=== PATIENT | male | born 1945 | race Caucasian/White ===

== ENCOUNTER → 2016-02-19 | Outpatient (CLI) | payer OTHER ==
[~2016-02-19] MED LIST: ALLOPURINOL300 MG PO; ANTIVERT25 MG PO; CIPROFLOXACIN500 MG PO; FEROSUL325 MG PO; FLAGYL250 MG PO; FOLIC ACID1 MG PO; GLYBURIDE5 MG PO; HYDROCODONE BIT1 T11 PO; INDOCIN50 MG PO; JANUMET 1000 MG1 TAB PO; LEVAQUIN500 M2 PO; LISINOPRIL40 MG PO; LOPRESSOR25 MG PO; PERCOCET 325 MG1 TA2 PO; V C FORTE PO; VICODIN 500 MG-1 TAB PO; VICODIN ES 7501 TAB PO; ZOCOR20 MG PO
== END | disposition home or self-care (01) ==
LOC: RAD 10:03
DX: M54.16 Radiculopathy, lumbar region (principal); M54.5 Low back pain

== ENCOUNTER → 2016-11-25 | Outpatient (CLI) | payer MEDICARE | END | disposition home or self-care (01) | LOC: RAD 10:15 | DX: N23 Unspecified renal colic (principal) ==

== ENCOUNTER 2018-05-12 09:27 | Emergency (ER) | payer MEDICARE ==
[~2018-05-12] VITALS: Ht 172.7 cm; Wt 93.9 kg
[~2018-05-12 09:27] MED LIST changes: +'TENORMIN50 MG PO; +ASPIRIN81 M1 PO; +FEOSOL325 MG PO; +FLOMAX0.4 MG PO; +GLUCOPHAGE1000 MG PO; +LEVOTHYROXINE100 MC1 PO; +LIPITOR10 MG PO; +LISINOPRIL2.5 MG PO; +LISINOPRIL5 MG PO; +MECLIZINE HCL25 M2 PO; +VITAMIN D-32000 UNI1 PO; +WARFARIN SOD5 MG PO; +XARELTO20 M1 PO
[2018-05-12 10:11] LABS: BASO # 0.1 10*3/uL (0.0-0.1); BASO % 0.8 % (0.0-1.0); EOS # 0.2 10*3/uL (0.0-0.4); EOS % 1.4 % (1.0-4.0); HEMATOCRIT 35.8 % (42.0-52.0); HEMOGLOBIN 10.7 g/dl (14.0-18.0); LYMPH # 2.8 10*3/uL (1.3-4.4); MEAN CELL VOLUME 63.5 fl (80.0-94.0); MEAN CORPUSCULAR HGB CONC 29.9 g/dl (33.0-37.0); MEAN PLATELET VOLUME 10.4 fl (9.6-12.3); MONO % 8.4 % (3.0-9.0); NEUT # 7.7 10*3/uL (2.3-7.9); NEUT % 65.1 % (47.0-73.0); PLATELET COUNT AUTOMATED 382 10*3/uL (130-400); RED BLOOD COUNT 5.64 10*6/uL (4.50-5.90); WHITE BLOOD COUNT 11.9 10*3/uL (4.8-10.8)
[2018-05-12 10:23] LABS: INTERNATIONAL NORM RATIO 1.2 (2.0-3.5)
[2018-05-12 10:27] LABS: ALBUMIN 3.5 gm/dl (3.1-4.5); ALKALINE PHOSPHATASE 148 U/L (45-117); BUN 20 mg/dl (7-24); CHLORIDE 106 mmol/L (98-107); CREATININE 1.08 mg/dL (0.70-1.30); POTASSIUM 4.3 mmol/L (3.5-5.1); SGOT/AST 9 IU/L (3-35); SGPT/ALT 19 U/L (12-78); SODIUM 140 mmol/L (136-145); TOTAL PROTEIN 7.7 gm/dL (6.4-8.2)
[2018-05-26] MEDS ORDERED: ALLOPURINOL300 MG PO (10:17)
== END 2018-05-12 11:21 | disposition home or self-care (01) ==
LOC: ED 09:27
PROVIDERS: Nurse Practitioner Family
DX: S50.11XA Contusion of right forearm, initial encounter (principal); S60.211A Contusion of right wrist, initial encounter; I10 Essential (primary) hypertension; E11.9 Type 2 diabetes mellitus without complications; I48.91 Unspecified atrial fibrillation; R60.0 Localized edema; Z86.73 Personal history of transient ischemic attack (TIA), and cerebral infarction without residual deficits; X58.XXXA Exposure to other specified factors, initial encounter; Y93.89 Activity, other specified; Y92.89 Other specified places as the place of occurrence of the external cause; Y99.8 Other external cause status

== ENCOUNTER 2019-01-13 16:41 | Inpatient (IN) | payer MEDICARE ==
[~2019-01-13] VITALS: Ht 172.7 cm; Wt 96.8 kg
[2019-01-13 16:59] VITALS: BP 114/73
[2019-01-13 17:01] LABS: BASO # 0.1 10*3/uL (0.0-0.1); BASO % 0.7 % (0.0-1.0); EOS # 0.2 10*3/uL (0.0-0.4); EOS % 1.5 % (1.0-4.0); HEMATOCRIT 34.2 % (42.0-52.0); HEMOGLOBIN 10.3 g/dl (14.0-18.0); LYMPH # 4.8 10*3/uL (1.3-4.4); LYMPH % 38.8 % (27.0-41.0); MEAN CELL VOLUME 63.8 fl (80.0-94.0); MEAN CORPUSCULAR HGB 19.2 pg (27.0-31.0); MEAN CORPUSCULAR HGB CONC 30.1 g/dl (33.0-37.0); MEAN PLATELET VOLUME 10.7 fl (9.6-12.3); MONO # 0.8 10*3/uL (0.1-1.0); MONO % 6.2 % (3.0-9.0); NEUT # 6.5 10*3/uL (2.3-7.9); NEUT % 52.5 % (47.0-73.0); PLATELET COUNT AUTOMATED 355 10*3/uL (130-400); RED BLOOD COUNT 5.36 10*6/uL (4.50-5.90); RED CELL DISTRI WIDTH 16.2 % (0-14.5); WHITE BLOOD COUNT 12.4 10*3/uL (4.8-10.8)
[2019-01-13 17:12] LABS: ACT PARTIAL THROMBO TIME 30.8 SECONDS (20.0-32.1); INTERNATIONAL NORM RATIO 1.1 (2.0-3.5)
[2019-01-13 17:18] LABS: ALBUMIN 3.5 gm/dl (3.1-4.5); ALKALINE PHOSPHATASE 112 U/L (45-117); BUN 22 mg/dl (7-24); CHLORIDE 103 mmol/L (98-107); CREATININE 1.49 mg/dL (0.70-1.30); POTASSIUM 4.1 mmol/L (3.5-5.1); SGOT/AST 20 IU/L (3-35); SGPT/ALT 23 U/L (12-78); SODIUM 138 mmol/L (136-145); TOTAL PROTEIN 7.2 gm/dL (6.4-8.2)
[2019-01-13 17:29] LABS: TROPONIN I < 0.015 ng/ml (<0.045)
[2019-01-13 17:32] LABS: BILIRUBIN NEGATIVE (NEGATIVE); BLOOD NEGATIVE (NEGATIVE); CLARITY SL CLOUDY (CLEAR); COLOR YELLOW (YELLOW); GLUCOSE NEGATIVE (NEGATIVE); KETONE TRACE (NEGATIVE); LEUKO ESTERASE NEGATIVE (NEGATIVE); NITRITE NEGATIVE (NEGATIVE); PH 5.5 (5.0-9.0); UROBILINOGEN 0.2 E.U./dl (0.2-1.0)
[2019-01-13 17:41] LABS: BACTERIA 1+; EPITHELIAL CELLS 0-2; MUCOUS TRACE; RBC 0-2 rbc/hpf (0-2); WBC 0-2 wbc/hpf (0-5)
[2019-01-13 18:30] VITALS: BP 122/56
--- NOTE | 2019-01-13 19:10 | NUR ---
RECEIVED REPORT FROM VIKTORIA WHEELER
[2019-01-13 19:17] VITALS: BP 134/68
[2019-01-13 19:35] VITALS: BP 124/87
--- NOTE | 2019-01-13 19:35 | NUR ---
A 73, admitted to , under the services of ALISHA Gonzalez MD with a diagnosis of . Chief complaint is DIZZINESS. Patient arrived via ambulatory from ER. Monitor applied. Initial assessment completed. Vital signs taken and recorded. ALISHA GONZALEZ MD notified of admission to the unit. Orders received. See assessment for past medical history, medications and allergies. Patient and/or family oriented to unit. [address] visitation policy reviewed. Clothing/patient valuable form completed. BEN BRAGA
[2019-01-13] MEDS ORDERED: ZESTORETIC 10-1 EACH PO (20:17)
--- NOTE | 2019-01-13 20:20 | NUR ---
INFORMED OF ADMISSION, PATIENTS STATUS AND LABS. SEE NEW ORDERS.
--- NOTE | 2019-01-13 21:00 | NUR ---
NOTIFIED PT GOT 4GM/100ML BAG OF MAG SULFATE IN ER FOR MAG OF 0.9. STATED PT WOULD NEED ANOTHER BAG. [employer] NOTIFIED AND BROUGHT 4 BAGS OF 1GM/100 ML BECAUSE WE DIDN'T HAVE 4GM BAGS. NOTIFIED AND SAID THIS WAS OK.
[2019-01-14] VITALS: BP 157/63
[2019-01-14 00:15] VITALS: BP 140/66
--- NOTE | 2019-01-14 02:49 | NUR ---
24 HR chart check completed.
--- NOTE | 2019-01-14 04:33 | NUR ---
Patient sleeping. Respirations relaxed and easy. Siderails up . [place] on. No signs of distress noted. Will continue to monitor. BEN BRAGA
[2019-01-14 06:43] LABS: BASO # 0.1 10*3/uL (0.0-0.1); BASO % 0.8 % (0.0-1.0); EOS # 0.3 10*3/uL (0.0-0.4); EOS % 2.6 % (1.0-4.0); HEMOGLOBIN 9.7 g/dl (14.0-18.0); LYMPH # 3.4 10*3/uL (1.3-4.4); LYMPH % 33.7 % (27.0-41.0); MEAN CORPUSCULAR HGB 18.8 pg (27.0-31.0); MEAN CORPUSCULAR HGB CONC 30.3 g/dl (33.0-37.0); MEAN PLATELET VOLUME 10.4 fl (9.6-12.3); MONO # 0.9 10*3/uL (0.1-1.0); MONO % 9.1 % (3.0-9.0); NEUT # 5.3 10*3/uL (2.3-7.9); NEUT % 53.4 % (47.0-73.0); PLATELET COUNT AUTOMATED 329 10*3/uL (130-400); RED BLOOD COUNT 5.16 10*6/uL (4.50-5.90); RED CELL DISTRI WIDTH 15.9 % (0-14.5)
[2019-01-14 06:53] LABS: BUN 21 mg/dl (7-24); CHLORIDE 104 mmol/L (98-107); CREATININE 1.21 mg/dL (0.70-1.30); PHOSPHOROUS 3.5 mg/dL (2.5-4.9); POTASSIUM 3.8 mmol/L (3.5-5.1); SODIUM 138 mmol/L (136-145)
--- NOTE | 2019-01-14 08:02 | NUR ---
TYLENOL GIVEN FOR C/O HEADACHE. WILL MONITOR.
--- NOTE | 2019-01-14 08:08 | NUR ---
PHYSICAL THERAPY Screen received pt admitted from home, please order Physical Therapy if decline in functional status ambulation, thank you. Destiny Saba PT
--- NOTE | 2019-01-14 09:00 | NUR ---
TYLENOL EFFECTIVE PER PT.
--- NOTE | 2019-01-14 09:50 | NUR ---
OCCUPATIONAL THERAPY Screen received pt admitted from home, please order Occupational Therapy if decline in functional status, thank you. Shakila Verma OTR/L
[2019-01-14 12:00] VITALS: BP 122/60
[2019-01-14 16:00] VITALS: BP 126/74
[2019-01-14] MEDS ORDERED: MAGNESIUM OXID400 MG PO (16:29)
--- NOTE | 2019-01-14 16:50 | NUR ---
[facility] Discharge instructions reviewed with patient/family. Patient receptive and verbalizes understanding. Follow-up care arranged. Written instructions given to patient/family. DORIAN MARIA
--- NOTE | 2019-01-14 16:51 | NUR ---
[facility] Discharge instructions reviewed with patient/family. Patient receptive and verbalizes understanding. Follow-up care arranged. Written instructions given to patient/family. DORIAN MARIA
== END 2019-01-14 18:18 | disposition home or self-care (01) | DRG 641 ==
LOC: ED 16:41 → EDHOLD 18:47 → 4E 19:20
PROVIDERS: Emergency Medicine; Internal Medicine; ADMIT Internal Medicine
DX: E83.42 Hypomagnesemia (principal); N17.9 Acute kidney failure, unspecified; I48.91 Unspecified atrial fibrillation; M19.90 Unspecified osteoarthritis, unspecified site; E11.9 Type 2 diabetes mellitus without complications; E78.5 Hyperlipidemia, unspecified; N40.0 Benign prostatic hyperplasia without lower urinary tract symptoms; F90.9 Attention-deficit hyperactivity disorder, unspecified type; E03.9 Hypothyroidism, unspecified; E86.1 Hypovolemia; I10 Essential (primary) hypertension; K57.90 Diverticulosis of intestine, part unspecified, without perforation or abscess without bleeding; M10.9 Gout, unspecified; Z91.018 Allergy to other foods; Z79.01 Long term (current) use of anticoagulants; Z86.73 Personal history of transient ischemic attack (TIA), and cerebral infarction without residual deficits; Z82.49 Family history of ischemic heart disease and other diseases of the circulatory system; Z81.8 Family history of other mental and behavioral disorders

== ENCOUNTER 2019-01-29 11:46 | Emergency (ER) | payer MEDICARE ==
[~2019-01-29] VITALS: Ht 172.7 cm; Wt 95.3 kg
[~2019-01-29 11:46] MED LIST changes: +MAGNESIUM OXID400 MG PO; +ZESTORETIC 10-1 EACH PO
== END 2019-01-29 13:11 | disposition home or self-care (01) ==
LOC: ED 11:46
DX: S63.502A Unspecified sprain of left wrist, initial encounter (principal); M10.9 Gout, unspecified; I10 Essential (primary) hypertension; E11.9 Type 2 diabetes mellitus without complications; M19.90 Unspecified osteoarthritis, unspecified site; I48.91 Unspecified atrial fibrillation; Z91.018 Allergy to other foods; Z79.899 Other long term (current) drug therapy; X58.XXXA Exposure to other specified factors, initial encounter; Y93.89 Activity, other specified; Y92.89 Other specified places as the place of occurrence of the external cause; Y99.8 Other external cause status

== ENCOUNTER → 2019-03-18 | Outpatient (CLI) | payer MEDICARE | END | disposition home or self-care (01) | LOC: US 12:06 | DX: N18.3 Chronic kidney disease, stage 3 (moderate) (principal) ==

== ENCOUNTER → 2019-11-04 | Outpatient (CLI) | payer MEDICARE | END | disposition home or self-care (01) | LOC: COVID19 00:44 | PROVIDERS: ATTEND Surgery | DX: Z01.812 Encounter for preprocedural laboratory examination (principal); Z20.828 Contact with and (suspected) exposure to other viral communicable diseases ==

== ENCOUNTER → 2019-11-10 | Day surgery (SDC) | payer MEDICARE ==
[~2019-11-10] VITALS: Ht 172.7 cm; Wt 83.5 kg
[2019-11-10 09:49] VITALS: BP 139/72
[2019-11-10 11:35] VITALS: BP 118/60
[2019-11-10 11:49] VITALS: BP 118/61
[2019-11-10 12:05] VITALS: BP 142/70
== END | disposition home or self-care (01) ==
LOC: SDC 11-07 11:00
PROVIDERS: ATTEND Surgery
DX: Z12.11 Encounter for screening for malignant neoplasm of colon (principal); D12.4 Benign neoplasm of descending colon; K57.30 Diverticulosis of large intestine without perforation or abscess without bleeding; I10 Essential (primary) hypertension; E11.9 Type 2 diabetes mellitus without complications; M10.9 Gout, unspecified; I48.91 Unspecified atrial fibrillation; E78.00 Pure hypercholesterolemia, unspecified; E78.5 Hyperlipidemia, unspecified; M19.90 Unspecified osteoarthritis, unspecified site; Z96.651 Presence of right artificial knee joint; Z88.8 Allergy status to other drugs, medicaments and biological substances; Z79.899 Other long term (current) drug therapy; Z83.3 Family history of diabetes mellitus

== ENCOUNTER → 2020-02-23 | Outpatient (CLI) | payer MEDICARE | END | disposition home or self-care (01) | LOC: US 15:00 | PROVIDERS: ATTEND Internal Medicine Nephrology | DX: M79.89 Other specified soft tissue disorders (principal) ==

== ENCOUNTER 2020-08-23 09:58 | Inpatient (IN) | payer MEDICARE ==
[~2020-08-23] VITALS: Ht 172.7 cm; Wt 86.2 kg
[2020-08-23 10:05] VITALS: BP 119/76
[2020-08-23 11:24] LABS: BASO # 0.1 10*3/uL (0.0-0.1); BASO % 0.7 % (0.0-1.0); EOS # 0.1 10*3/uL (0.0-0.4); EOS % 0.9 % (1.0-4.0); HEMATOCRIT 36.3 % (42.0-52.0); LYMPH # 2.5 10*3/uL (1.3-4.4); LYMPH % 23.8 % (27.0-41.0); MEAN CELL VOLUME 61.8 fl (80.0-94.0); MEAN CORPUSCULAR HGB 18.9 pg (27.0-31.0); MEAN CORPUSCULAR HGB CONC 30.6 g/dl (33.0-37.0); MONO # 0.9 10*3/uL (0.1-1.0); MONO % 8.4 % (3.0-9.0); NEUT # 6.9 10*3/uL (2.3-7.9); NEUT % 65.9 % (47.0-73.0); PLATELET COUNT AUTOMATED 416 10*3/uL (130-400); RED BLOOD COUNT 5.87 10*6/uL (4.50-5.90); RED CELL DISTRI WIDTH 18.4 % (0-14.5); WHITE BLOOD COUNT 10.4 10*3/uL (4.8-10.8)
[2020-08-23 11:42] LABS: ALBUMIN 3.7 gm/dl (3.1-4.5); ALKALINE PHOSPHATASE 140 U/L (45-117); BUN 10 mg/dl (7-24); CHLORIDE 104 mmol/L (98-107); CREATININE 1.01 mg/dL (0.70-1.30); POTASSIUM 4.1 mmol/L (3.5-5.1); SGOT/AST 10 IU/L (3-35); SGPT/ALT 17 U/L (12-78); SODIUM 136 mmol/L (136-145); TOTAL PROTEIN 7.8 gm/dL (6.4-8.2); URIC ACID 2.8 mg/dL (3.5-7.2)
[2020-08-23 12:00] VITALS: BP 120/76
[2020-08-23 14:15] VITALS: BP 120/70
[2020-08-23] MEDS ORDERED: ZYLOPRIM300 MG PO (14:17)
[2020-08-23] MEDS ORDERED: FLOMAX0.4 MG PO (14:17)
[2020-08-23] MEDS ORDERED: FERROUS SULFAT325 MG PO (14:19)
[2020-08-23] MEDS ORDERED: XARELTO10 MG PO (14:23)
[2020-08-23] MEDS ORDERED: MAGNESIUM OXID400 MG PO (14:24)
[2020-08-23] MEDS ORDERED: XARELTO20 M1 PO (14:24)
[2020-08-23] MEDS ORDERED: ATENOLOL25 MG PO (14:25)
[2020-08-23 16:12] VITALS: BP 122/70
[2020-08-23 17:00] VITALS: BP 141/67
[2020-08-23 20:00] VITALS: BP 137/71
[2020-08-24] VITALS: BP 134/69
[2020-08-24 08:00] VITALS: BP 112/58
[2020-08-24 10:23] LABS: BF LYMPHOCYTES 5 %; BF MONOCYTES 14 %; BF NEUTROPHILS 81 %
[2020-08-24 10:42] LABS: BODY FLUID WBC 11575 /uL
[2020-08-24] MEDS ORDERED: CEFUROXIME AXE500 MG PO (13:25)
== END 2020-08-24 14:37 | disposition home or self-care (01) | DRG 603 ==
LOC: ED 09:58 → 4E 15:19 → EDHOLD 15:19 → 4E 16:00
PROVIDERS: Emergency Medicine; Orthopaedic Surgery; ADMIT Internal Medicine; ATTEND Internal Medicine
PROC: 0R9M3ZZ Drainage of Left Elbow Joint, Percutaneous Approach (ICD-10-PCS; principal; 2020-08-23)
DX: L03.114 Cellulitis of left upper limb (principal); M00.9 Pyogenic arthritis, unspecified; Z91.02 Food additives allergy status; Z81.8 Family history of other mental and behavioral disorders; Z96.651 Presence of right artificial knee joint

== ENCOUNTER → 2020-11-14 | Outpatient (CLI) | payer MEDICARE ==
[~2020-11-14] MED LIST changes: +ATENOLOL25 MG PO; +CEFUROXIME AXE500 MG PO; +FERROUS SULFAT325 MG PO; +XARELTO10 MG PO; +ZYLOPRIM300 MG PO
== END | disposition home or self-care (01) ==
LOC: US 14:49
PROVIDERS: ATTEND Internal Medicine Nephrology
DX: I65.21 Occlusion and stenosis of right carotid artery (principal)

== ENCOUNTER → 2021-10-10 | Outpatient (CLI) | payer MEDICARE ==
[2021-10-10 11:05] LABS: BUN 16 mg/dl (7-24); CHLORIDE 104 mmol/L (98-107); CREATININE 1.18 mg/dL (0.70-1.30); POTASSIUM 3.8 mmol/L (3.5-5.1); SODIUM 138 mmol/L (136-145)
== END | disposition home or self-care (01) ==
LOC: LAB 10:30
PROVIDERS: ATTEND Internal Medicine Nephrology
DX: U07.1 COVID-19 (principal)

== ENCOUNTER 2022-01-08 10:18 | Emergency (ER) | payer MEDICARE ==
[~2022-01-08] VITALS: Ht 170.1 cm; Wt 85.7 kg
== END 2022-01-08 13:33 | disposition home or self-care (01) ==
LOC: ED 10:18
DX: R20.2 Paresthesia of skin (principal); R20.0 Anesthesia of skin; Z91.018 Allergy to other foods; Z79.899 Other long term (current) drug therapy; E11.9 Type 2 diabetes mellitus without complications

== ENCOUNTER 2022-03-31 11:04 | Emergency (ER) | payer MEDICARE ==
[~2022-03-31] VITALS: Ht 170.1 cm; Wt 81.2 kg
[~2022-03-31 11:04] MED LIST changes: +CEPHALEXIN500 M1 PO
[2022-03-31 11:39] LABS: BASO # 0.1 10*3/uL (0.0-0.1); BASO % 0.9 % (0.0-1.0); EOS # 0.2 10*3/uL (0.0-0.4); EOS % 2.8 % (1.0-4.0); HEMATOCRIT 33.2 % (42.0-52.0); LYMPH # 2.8 10*3/uL (1.3-4.4); LYMPH % 34.9 % (27.0-41.0); MEAN CELL VOLUME 61.7 fl (80.0-94.0); MEAN CORPUSCULAR HGB 18.8 pg (27.0-31.0); MEAN CORPUSCULAR HGB CONC 30.4 g/dl (33.0-37.0); MEAN PLATELET VOLUME 9.8 fl (9.6-12.3); MONO # 0.7 10*3/uL (0.1-1.0); MONO % 8.5 % (3.0-9.0); NEUT # 4.2 10*3/uL (2.3-7.9); NEUT % 52.8 % (47.0-73.0); PLATELET COUNT AUTOMATED 511 10*3/uL (130-400); RED BLOOD COUNT 5.38 10*6/uL (4.50-5.90); RED CELL DISTRI WIDTH 17.3 % (0-14.5)
[2022-03-31 11:43] LABS: BILIRUBIN Negative (Negative); BLOOD Negative (Negative); CLARITY Cloudy (Clear); COLOR Yellow (Yellow); GLUCOSE Negative (Negative); KETONE Negative (Negative); LEUKO ESTERASE 3+ (Negative); NITRITE Negative (Negative)
[2022-03-31 11:54] LABS: ALKALINE PHOSPHATASE 145 U/L (46-116); BUN 20 mg/dl (9-23); CHLORIDE 99 mmol/L (98-107); POTASSIUM 3.8 mmol/L (3.4-5.1); SGPT/ALT 10 U/L (10-49); TOTAL PROTEIN 6.9 gm/dL (6.0-8.0)
[2022-03-31 12:06] LABS: BACTERIA 2+; WBC TNTC wbc/hpf (0-5)
[2022-03-31] MEDS ORDERED: LIDODERM1 EACH T ×2 (14:51)
[2022-03-31] MEDS ORDERED: AMOXICILLIN500 M2 PO (14:51)
== END 2022-03-31 15:14 | disposition home or self-care (01) ==
LOC: ED 11:04
PROVIDERS: Nurse Practitioner Family
DX: M16.12 Unilateral primary osteoarthritis, left hip (principal); N39.0 Urinary tract infection, site not specified; Z96.651 Presence of right artificial knee joint; I10 Essential (primary) hypertension; E11.9 Type 2 diabetes mellitus without complications

== ENCOUNTER → 2022-04-01 | Outpatient (CLI) | payer MEDICARE ==
[~2022-04-01] MED LIST changes: +AMOXICILLIN500 M2 PO; +LIDODERM1 EACH T
== END | disposition home or self-care (01) ==
LOC: LAB 11:21
PROVIDERS: ATTEND Internal Medicine
DX: E11.22 Type 2 diabetes mellitus with diabetic chronic kidney disease (principal)

== ENCOUNTER → 2022-04-03 | Day surgery (SDC) | payer MEDICARE ==
[2022-04-01 12:19] LABS: BUN 26 mg/dl (9-23); CHLORIDE 99 mmol/L (98-107); POTASSIUM 4.1 mmol/L (3.4-5.1)
[~2022-04-03] VITALS: Ht 170.1 cm; Wt 81.2 kg
[~2022-04-03] MED LIST changes: +VALTREX1000 MG PO
[2022-04-03 07:44] VITALS: BP 150/75
[2022-04-03 08:53] VITALS: BP 97/48
[2022-04-03 09:08] VITALS: BP 115/60
[2022-04-03 09:22] VITALS: BP 115/60
== END | disposition home or self-care (01) ==
LOC: SDC 03-31 09:30
PROVIDERS: ATTEND Orthopaedic Surgery
DX: G56.03 Carpal tunnel syndrome, bilateral upper limbs (principal); I10 Essential (primary) hypertension; M10.9 Gout, unspecified; I48.91 Unspecified atrial fibrillation; Z86.73 Personal history of transient ischemic attack (TIA), and cerebral infarction without residual deficits; E11.40 Type 2 diabetes mellitus with diabetic neuropathy, unspecified; E78.00 Pure hypercholesterolemia, unspecified; Z96.651 Presence of right artificial knee joint; Z79.899 Other long term (current) drug therapy

== ENCOUNTER 2022-04-04 16:26 | Emergency (ER) | payer MEDICARE ==
[~2022-04-04] VITALS: Ht 170.1 cm; Wt 81.2 kg
[~2022-04-04 16:26] MED LIST changes: -VALTREX1000 MG PO
[2022-04-04] MEDS ORDERED: VALTREX1000 MG PO (17:34)
== END 2022-04-04 16:45 | disposition home or self-care (01) ==
LOC: ED 16:26
DX: B02.9 Zoster without complications (principal); Z91.018 Allergy to other foods; Z96.651 Presence of right artificial knee joint; I10 Essential (primary) hypertension; E11.9 Type 2 diabetes mellitus without complications; I48.91 Unspecified atrial fibrillation; M19.90 Unspecified osteoarthritis, unspecified site; M10.9 Gout, unspecified

== ENCOUNTER → 2023-02-19 | Outpatient (CLI) | payer MEDICARE ==
[~2023-02-19] MED LIST changes: +VALTREX1000 MG PO
== END | disposition home or self-care (01) ==
LOC: ORTHO 00:36
PROVIDERS: ATTEND Orthopaedic Surgery
DX: M16.11 Unilateral primary osteoarthritis, right hip (principal); M25.751 Osteophyte, right hip; M47.816 Spondylosis without myelopathy or radiculopathy, lumbar region

== ENCOUNTER 2023-05-12 01:08 | Inpatient (IN) | payer MEDICARE ==
[2023-05-08 13:58] VITALS: BP 140/50
[2023-05-08 15:16] LABS: BASO # 0.1 10*3/uL (0.0-0.1); BASO % 0.9 % (0.0-1.0); EOS # 0.2 10*3/uL (0.0-0.4); EOS % 1.7 % (1.0-4.0); LYMPH # 2.5 10*3/uL (1.3-4.4); LYMPH % 27.4 % (27.0-41.0); MEAN CELL VOLUME 63.7 fl (80.0-94.0); MEAN CORPUSCULAR HGB 18.7 pg (27.0-31.0); MEAN CORPUSCULAR HGB CONC 29.4 g/dl (33.0-37.0); MEAN PLATELET VOLUME 10.3 fl (9.6-12.3); MONO # 0.6 10*3/uL (0.1-1.0); MONO % 6.9 % (3.0-9.0); NEUT # 5.7 10*3/uL (2.3-7.9); NEUT % 62.9 % (47.0-73.0); PLATELET COUNT AUTOMATED 472 10*3/uL (130-400); RED BLOOD COUNT 4.87 10*6/uL (4.50-5.90)
[2023-05-08 15:42] LABS: ALKALINE PHOSPHATASE 121 U/L (46-116); BUN 19 mg/dl (9-23); CHLORIDE 103 mmol/L (98-107); SGPT/ALT < 7 U/L (5-49); TOTAL PROTEIN 7.1 gm/dL (6.0-8.0)
[2023-05-08 16:26] LABS: BILIRUBIN Negative (Negative); BLOOD Negative (Negative); CLARITY Clear (Clear); COLOR Yellow (Yellow); GLUCOSE Negative (Negative); KETONE Negative (Negative); LEUKO ESTERASE 1+ (Negative); NITRITE Positive (Negative); PH 7.5 (4.5-8.0)
[2023-05-08 16:38] LABS: BACTERIA 4+; WBC 41-50 wbc/hpf (0-5)
[~2023-05-12] VITALS: Ht 172.7 cm; Wt 78.6 kg
[2023-05-12] VITALS (9 sets, daily range): BP systolic 109–170; BP diastolic 53–89
[~2023-05-12 01:08] MED LIST changes: +LEVOTHYROXINE75 MCG PO
[2023-05-12] MEDS ORDERED: ceFAZolin sodium/sodium chlor 1 GM/10 ML SYR IV ONE (07:25)
[2023-05-12] MEDS ORDERED: Midazolam Hydrochloride 2 MG/2 ML VIAL IV ONE ×2 (07:25→15:26)
[2023-05-12] MEDS ORDERED: TRANEXAMIC ACID IN NACL,ISO-OS 100 ML IV ONE ×2 (07:25→07:35)
[2023-05-12] MEDS ORDERED: SODIUM CHLORIDE 0.9% 1,000 ML IV ONE ×4 (07:25→09:46)
[2023-05-12] MEDS ORDERED: ceFAZolin sodium/sodium chlor 20 ML IV ONE (07:36)
[2023-05-12] MEDS ORDERED: DEXAMETHASONE SODIUM PHOSP/PRESERVATIVE FREE 10 MG/ML VIAL ONE (07:56)
[2023-05-12] MEDS ORDERED: Midazolam Hydrochloride 2 MG/2 ML VIAL ONE (07:57)
[2023-05-12] MEDS ORDERED: Ropivacaine Hydrochloride 5 MG/ML 20 ML AMP IJ ONE (07:57)
[2023-05-12] MEDS ORDERED: LIDOCAINE HCL/EPINEPHRINE 50 ML VIAL ONE (08:25)
[2023-05-12] MEDS ORDERED: Acetaminophen/Hydrocodone 5 MG/325 MG TABLET PO PRN (09:10)
[2023-05-12] MEDS ORDERED: Ondansetron Hydrochloride 4 MG/2 ML VIAL IV PRN (09:10)
[2023-05-12] MEDS ORDERED: MORPHINE Sulfate 2 MG/ML SYR IV PRN (09:10)
[2023-05-12] MEDS ORDERED: Cholecalciferol 2,000 UNIT TABLET (50 MCG) PO SCH (10:00)
[2023-05-12] MEDS ORDERED: DOCUSATE SODIUM 100 MG CAP PO SCH (10:00)
[2023-05-12] MEDS ORDERED: ceFAZolin sodium 1 GM in SYRINGE INFUSION 10 ML IV SCH (14:00)
[2023-05-12] MEDS ORDERED: CIPROFLOXACIN500 M4 PO (14:15)
[2023-05-12] MEDS ORDERED: DEXTROSE 10 % IN WATER 250 ML IV PRN (14:55)
[2023-05-12] MEDS ORDERED: PROPOFOL 200 MG/20 ML VIAL IV ONE (15:26)
[2023-05-12] MEDS ORDERED: INSULIN LISPRO 1 UNIT/0.01 ML SQ SCH (16:30)
[2023-05-12] MEDS ORDERED: ALLOPURINOL 300 MG TAB PO SCH (18:00)
[2023-05-12] MEDS ORDERED: Ciprofloxacin Hydrochloride 500 MG TAB PO SCH (18:00)
[2023-05-13 06:09] LABS: BASO % 0.1 % (0.0-1.0); EOS # 0.1 10*3/uL (0.0-0.4); EOS % 0.5 % (1.0-4.0); HEMATOCRIT 25.3 % (42.0-52.0); LYMPH # 1.7 10*3/uL (1.3-4.4); LYMPH % 11.9 % (27.0-41.0); MEAN CELL VOLUME 62.2 fl (80.0-94.0); MEAN CORPUSCULAR HGB 18.9 pg (27.0-31.0); MEAN CORPUSCULAR HGB CONC 30.4 g/dl (33.0-37.0); MEAN PLATELET VOLUME 9.8 fl (9.6-12.3); MONO # 1.2 10*3/uL (0.1-1.0); MONO % 8.3 % (3.0-9.0); NEUT # 11.1 10*3/uL (2.3-7.9); NEUT % 78.7 % (47.0-73.0); PLATELET COUNT AUTOMATED 394 10*3/uL (130-400); RED BLOOD COUNT 4.07 10*6/uL (4.50-5.90); RED CELL DISTRI WIDTH 16.7 % (0-14.5); WHITE BLOOD COUNT 14.2 10*3/uL (4.8-10.8)
[2023-05-13 06:32] LABS: BUN 16 mg/dl (9-23); CHLORIDE 104 mmol/L (98-107); POTASSIUM 4.2 mmol/L (3.4-5.1)
[2023-05-13 08:00] VITALS: BP 120/76
[2023-05-13] MEDS ORDERED: FOAM BANDAGE HEEL T ONE (09:35)
[2023-05-13] MEDS ORDERED: Levothyroxine Sodium 75 MCG TAB PO SCH (10:00)
[2023-05-13] MEDS ORDERED: Tamsulosin Hydrochloride 0.4 MG CAP PO SCH (10:00)
[2023-05-13] MEDS ORDERED: MAGNESIUM OXIDE 400 MG TAB PO SCH (10:00)
[2023-05-13] MEDS ORDERED: ATENOLOL 25 MG TAB PO SCH (10:00)
[2023-05-13 12:00] VITALS: BP 119/61
[2023-05-13 16:00] VITALS: BP 132/63
[2023-05-13] MEDS ORDERED: CHAIR CUSHION DEVICE ONE (16:48)
[2023-05-13] MEDS ORDERED: RIVAROXABAN 20 MG TAB PO SCH (18:00)
[2023-05-13 20:00] VITALS: BP 105/74
[2023-05-13] MEDS ORDERED: Melatonin 5 MG TABLET PO PRN (20:20)
[2023-05-14] VITALS: BP 115/54
[2023-05-14 06:22] LABS: BASO # 0.1 10*3/uL (0.0-0.1); BASO % 0.4 % (0.0-1.0); EOS % 0.2 % (1.0-4.0); HEMATOCRIT 24.6 % (42.0-52.0); LYMPH # 2.5 10*3/uL (1.3-4.4); LYMPH % 19.2 % (27.0-41.0); MEAN CELL VOLUME 62.3 fl (80.0-94.0); MEAN CORPUSCULAR HGB CONC 30.5 g/dl (33.0-37.0); MEAN PLATELET VOLUME 9.8 fl (9.6-12.3); MONO # 1.5 10*3/uL (0.1-1.0); MONO % 11.2 % (3.0-9.0); NEUT # 9.1 10*3/uL (2.3-7.9); NEUT % 68.7 % (47.0-73.0); PLATELET COUNT AUTOMATED 357 10*3/uL (130-400); RED BLOOD COUNT 3.95 10*6/uL (4.50-5.90); RED CELL DISTRI WIDTH 16.5 % (0-14.5); WHITE BLOOD COUNT 13.2 10*3/uL (4.8-10.8)
[2023-05-14 08:00] VITALS: BP 105/54
[2023-05-14 12:00] VITALS: BP 108/64; BP 108/99; BP 110/74
[2023-05-14 16:00] VITALS: BP 131/54
[2023-05-14 20:00] VITALS: BP 105/58
[2023-05-15] VITALS: BP 128/56
[2023-05-15] MEDS ORDERED: HEEL PROTECTOR DEVICE ONE (00:04)
[2023-05-15 05:52] LABS: BASO # 0.1 10*3/uL (0.0-0.1); BASO % 0.5 % (0.0-1.0); EOS % 0.2 % (1.0-4.0); HEMATOCRIT 23.6 % (42.0-52.0); LYMPH # 2.9 10*3/uL (1.3-4.4); LYMPH % 21.5 % (27.0-41.0); MEAN CELL VOLUME 61.6 fl (80.0-94.0); MEAN CORPUSCULAR HGB 19.1 pg (27.0-31.0); MEAN CORPUSCULAR HGB CONC 30.9 g/dl (33.0-37.0); MEAN PLATELET VOLUME 10.4 fl (9.6-12.3); MONO # 1.4 10*3/uL (0.1-1.0); MONO % 10.8 % (3.0-9.0); NEUT # 8.7 10*3/uL (2.3-7.9); NEUT % 65.6 % (47.0-73.0); PLATELET COUNT AUTOMATED 349 10*3/uL (130-400); RED BLOOD COUNT 3.83 10*6/uL (4.50-5.90); RED CELL DISTRI WIDTH 16.1 % (0-14.5); WHITE BLOOD COUNT 13.3 10*3/uL (4.8-10.8)
[2023-05-15 08:00] VITALS: BP 119/60
[2023-05-15] MEDS ORDERED: FERROUS SULFATE 325 MG TAB PO SCH (10:00)
[2023-05-15 12:00] VITALS: BP 95/50
[2023-05-15 14:29] VITALS: BP 104/50
[2023-05-15 16:00] VITALS: BP 102/60
[2023-05-15 20:00] VITALS: BP 103/70
[2023-05-16] VITALS (12 sets, daily range): BP systolic 99–120; BP diastolic 42–58
[2023-05-16 06:01] LABS: BASO % 0.4 % (0.0-1.0); EOS # 0.2 10*3/uL (0.0-0.4); EOS % 1.4 % (1.0-4.0); HEMATOCRIT 22.4 % (42.0-52.0); LYMPH # 3.2 10*3/uL (1.3-4.4); LYMPH % 28.3 % (27.0-41.0); MEAN CELL VOLUME 61.5 fl (80.0-94.0); MEAN CORPUSCULAR HGB 19.2 pg (27.0-31.0); MEAN CORPUSCULAR HGB CONC 31.3 g/dl (33.0-37.0); MONO # 1.1 10*3/uL (0.1-1.0); MONO % 9.7 % (3.0-9.0); NEUT # 6.7 10*3/uL (2.3-7.9); NEUT % 59.9 % (47.0-73.0); PLATELET COUNT AUTOMATED 341 10*3/uL (130-400); RED BLOOD COUNT 3.64 10*6/uL (4.50-5.90); RED CELL DISTRI WIDTH 15.9 % (0-14.5); WHITE BLOOD COUNT 11.2 10*3/uL (4.8-10.8)
[2023-05-16 06:12] LABS: BUN 19 mg/dl (9-23); CHLORIDE 102 mmol/L (98-107); POTASSIUM 3.9 mmol/L (3.4-5.1)
[2023-05-16] MEDS ORDERED: SODIUM CHLORIDE 0.9% 500 ML IV ONE (09:09)
[2023-05-16] MEDS ORDERED: NA FERRIC GLUC CMPL/SUCROSE 62.5 MG/5 ML VIAL IV SCH (10:00)
[2023-05-16] MEDS ORDERED: SACUBITRIL/VALSARTAN 24 MG-26 MG TABLET PO SCH (10:00)
[2023-05-16] MEDS ORDERED: METOPROLOL SUCCINATE XR 25 MG TAB PO SCH (22:00)
[2023-05-17] VITALS: BP 131/58
[2023-05-17 06:07] LABS: BASO # 0.1 10*3/uL (0.0-0.1); BASO % 0.5 % (0.0-1.0); EOS # 0.2 10*3/uL (0.0-0.4); EOS % 2.3 % (1.0-4.0); HEMATOCRIT 25.9 % (42.0-52.0); LYMPH # 2.6 10*3/uL (1.3-4.4); LYMPH % 26.4 % (27.0-41.0); MEAN CELL VOLUME 62.6 fl (80.0-94.0); MEAN CORPUSCULAR HGB 19.3 pg (27.0-31.0); MEAN CORPUSCULAR HGB CONC 30.9 g/dl (33.0-37.0); MEAN PLATELET VOLUME 9.5 fl (9.6-12.3); MONO % 10.1 % (3.0-9.0); NEUT # 5.9 10*3/uL (2.3-7.9); NEUT % 60.4 % (47.0-73.0); PLATELET COUNT AUTOMATED 384 10*3/uL (130-400); RED BLOOD COUNT 4.14 10*6/uL (4.50-5.90); RED CELL DISTRI WIDTH 17.1 % (0-14.5); WHITE BLOOD COUNT 9.7 10*3/uL (4.8-10.8)
[2023-05-17 06:09] LABS: BUN 22 mg/dl (9-23); CHLORIDE 102 mmol/L (98-107); POTASSIUM 3.8 mmol/L (3.4-5.1)
[2023-05-17 08:00] VITALS: BP 100/53
[2023-05-17] MEDS ORDERED: EMPAGLIFLOZIN 10 MG TABLET PO SCH (10:00)
[2023-05-17 12:00] VITALS: BP 107/53
[2023-05-17 16:00] VITALS: BP 108/49
[2023-05-18] VITALS: BP 137/56
[2023-05-18 08:00] VITALS: BP 97/83
[2023-05-18] MEDS ORDERED: METOPROLOL SUCC25 M2 PO (08:44)
[2023-05-18] MEDS ORDERED: ENTRESTO 24 MG1 EACH PO (08:44)
[2023-05-18] MEDS ORDERED: JARDIANCE10 MG PO (08:44)
[2023-05-18] MEDS ORDERED: FERROUS SULFAT325 MG PO (08:54)
== END 2023-05-18 12:20 | DRG 470 ==
LOC: SDC 01:08 → 5E 09:24 → 4E 09:24 → 5E 13:34 → SDC 14:00 → 5E 05-18 12:20
PROVIDERS: Internal Medicine; Orthopaedic Surgery; ADMIT Internal Medicine; ATTEND Internal Medicine
PROC: 0SR90JZ Replacement of Right Hip Joint with Synthetic Substitute, Open Approach (ICD-10-PCS; principal; 2023-05-12)
DX: M16.11 Unilateral primary osteoarthritis, right hip (principal); I48.21 Permanent atrial fibrillation; I42.9 Cardiomyopathy, unspecified; I50.22 Chronic systolic (congestive) heart failure; D62 Acute posthemorrhagic anemia; K59.09 Other constipation; M1A.9XX0 Chronic gout, unspecified, without tophus (tophi); E03.9 Hypothyroidism, unspecified; N40.1 Benign prostatic hyperplasia with lower urinary tract symptoms; R33.8 Other retention of urine; R62.7 Adult failure to thrive; I25.10 Atherosclerotic heart disease of native coronary artery without angina pectoris; E11.9 Type 2 diabetes mellitus without complications; K57.30 Diverticulosis of large intestine without perforation or abscess without bleeding; E78.2 Mixed hyperlipidemia; I11.0 Hypertensive heart disease with heart failure; Z82.0 Family history of epilepsy and other diseases of the nervous system; Z91.09 Other allergy status, other than to drugs and biological substances; Z86.73 Personal history of transient ischemic attack (TIA), and cerebral infarction without residual deficits; Z79.899 Other long term (current) drug therapy; Z79.01 Long term (current) use of anticoagulants; Z79.2 Long term (current) use of antibiotics; Z68.26 Body mass index [BMI] 26.0-26.9, adult

== ENCOUNTER → 2023-05-25 | Outpatient (CLI) | payer MEDICARE ==
[~2023-05-25] MED LIST changes: +CIPROFLOXACIN500 M4 PO; +ENTRESTO 24 MG1 EACH PO; +JARDIANCE10 MG PO; +METOPROLOL SUCC25 M2 PO
== END | disposition home or self-care (01) ==
LOC: ORTHO 00:55
PROVIDERS: ATTEND Orthopaedic Surgery
DX: M16.11 Unilateral primary osteoarthritis, right hip (principal)

== ENCOUNTER → 2023-06-22 | Outpatient (CLI) | payer MEDICARE | END | disposition home or self-care (01) | LOC: ORTHO 01:22 | PROVIDERS: ATTEND Orthopaedic Surgery | DX: M16.11 Unilateral primary osteoarthritis, right hip (principal); Z96.641 Presence of right artificial hip joint ==

== ENCOUNTER 2023-07-03 13:31 | Emergency (ER) | payer MEDICARE ==
[~2023-07-03] VITALS: Wt 77.1 kg
[2023-07-03 14:03] LABS: BASO # 0.1 10*3/uL (0.0-0.1); BASO % 0.6 % (0.0-1.0); EOS % 0.1 % (1.0-4.0); HEMATOCRIT 35.2 % (42.0-52.0); LYMPH # 1.1 10*3/uL (1.3-4.4); LYMPH % 8.8 % (27.0-41.0); MEAN CELL VOLUME 65.3 fl (80.0-94.0); MEAN CORPUSCULAR HGB 19.7 pg (27.0-31.0); MEAN CORPUSCULAR HGB CONC 30.1 g/dl (33.0-37.0); MEAN PLATELET VOLUME 9.4 fl (9.6-12.3); MONO # 0.6 10*3/uL (0.1-1.0); MONO % 4.7 % (3.0-9.0); NEUT # 10.6 10*3/uL (2.3-7.9); NEUT % 85.4 % (47.0-73.0); PLATELET COUNT AUTOMATED 433 10*3/uL (130-400); RED BLOOD COUNT 5.39 10*6/uL (4.50-5.90); RED CELL DISTRI WIDTH 18.5 % (0-14.5); WHITE BLOOD COUNT 12.4 10*3/uL (4.8-10.8)
[2023-07-03 14:27] LABS: BUN 19 mg/dl (9-23); CHLORIDE 103 mmol/L (98-107); POTASSIUM 4.6 mmol/L (3.4-5.1)
[2023-07-03] MEDS ORDERED: MIRALAX POWDER17 G1 PO (17:05)
== END 2023-07-03 17:06 | disposition home or self-care (01) ==
LOC: ED 13:31
PROVIDERS: Nurse Practitioner Family
DX: K59.00 Constipation, unspecified (principal); Z91.018 Allergy to other foods; I48.91 Unspecified atrial fibrillation; M10.9 Gout, unspecified; E78.5 Hyperlipidemia, unspecified; I10 Essential (primary) hypertension; E78.00 Pure hypercholesterolemia, unspecified; E11.65 Type 2 diabetes mellitus with hyperglycemia; E83.42 Hypomagnesemia; E03.9 Hypothyroidism, unspecified; D64.9 Anemia, unspecified; Z98.890 Other specified postprocedural states; Z96.651 Presence of right artificial knee joint; Z86.73 Personal history of transient ischemic attack (TIA), and cerebral infarction without residual deficits

== ENCOUNTER → 2023-08-03 | Outpatient (CLI) | payer MEDICARE ==
[~2023-08-03] MED LIST changes: +MIRALAX POWDER17 G1 PO
== END ==
LOC: ORTHO 01:38
PROVIDERS: ATTEND Orthopaedic Surgery
DX: M16.11 Unilateral primary osteoarthritis, right hip (principal)

== ENCOUNTER → 2023-11-04 | Outpatient (CLI) | payer MEDICARE | END | disposition home or self-care (01) | LOC: ORTHO 00:53 | PROVIDERS: ATTEND Orthopaedic Surgery | DX: M16.11 Unilateral primary osteoarthritis, right hip (principal); Z96.641 Presence of right artificial hip joint ==

== ENCOUNTER → 2023-11-09 | Outpatient (CLI) | payer MEDICARE | END | disposition home or self-care (01) | LOC: ORTHO 02:27 | PROVIDERS: ATTEND Orthopaedic Surgery | DX: M17.12 Unilateral primary osteoarthritis, left knee (principal); M21.162 Varus deformity, not elsewhere classified, left knee ==

== ENCOUNTER → 2023-11-13 | Outpatient (CLI) | payer MEDICARE | END | disposition home or self-care (01) | LOC: CT 12:31 | PROVIDERS: ATTEND Orthopaedic Surgery | DX: M17.12 Unilateral primary osteoarthritis, left knee (principal); M21.162 Varus deformity, not elsewhere classified, left knee ==

== ENCOUNTER 2023-12-29 00:41 | Inpatient (IN) | payer MEDICARE ==
[2023-12-25 11:06] LABS: ACT PARTIAL THROMBO TIME 34.1 SECONDS (20.0-32.1)
[2023-12-25 11:16] LABS: ALKALINE PHOSPHATASE 125 U/L (46-116); BUN 14 mg/dl (9-23); CHLORIDE 101 mmol/L (98-107); POTASSIUM 3.8 mmol/L (3.4-5.1)
[2023-12-25 11:17] LABS: SGPT/ALT < 7 U/L (5-49)
[2023-12-29] VITALS (9 sets, daily range): BP systolic 135–177; BP diastolic 68–90
[~2023-12-29] VITALS: Ht 172.7 cm; Wt 79.8 kg
[2023-12-29 07:30] LABS: BILIRUBIN Negative (Negative); BLOOD Negative (Negative); CLARITY Cloudy (Clear); COLOR Yellow (Yellow); GLUCOSE Negative (Negative); KETONE Negative (Negative); LEUKO ESTERASE Negative (Negative); NITRITE Negative (Negative); PH 5.5 (4.5-8.0); SPECIFIC GRAVITY 1.015 (1.001-1.030); UROBILINOGEN 0.2 E.U./dl (0.0-1.0)
[2023-12-29 07:44] LABS: RBC 0-2 rbc/hpf (0-2); WBC 0-2 wbc/hpf (0-5)
[2023-12-29] MEDS ORDERED: BUPIVACAINE 0.5% 10 ML VIAL ONE ×2 (08:29)
[2023-12-29] MEDS ORDERED: Acetaminophen/Oxycodone 5 MG/325 MG TABLET PO PRN (08:30)
[2023-12-29] MEDS ORDERED: Bupivacaine Hydrochloride/Ep2 30 ML VIAL ONE (08:30)
[2023-12-29] MEDS ORDERED: MORPHINE Sulfate 4 MG IV PRN (08:30)
[2023-12-29] MEDS ORDERED: Ondansetron Hydrochloride 4 MG/2 ML VIAL IV PRN (08:30)
[2023-12-29] MEDS ORDERED: Lactated Ringer's Solution 1,000 ML IV ONE ×2 (09:45→11:00)
[2023-12-29] MEDS ORDERED: ceFAZolin sodium/sodium chlor 20 ML IV ONE ×2 (09:45→10:00)
[2023-12-29] MEDS ORDERED: MORPHINE Sulfate 2 MG/ML SYR IV PRN (09:45)
[2023-12-29] MEDS ORDERED: TRANEXAMIC ACID IN NACL,ISO-OS 100 ML IV ONE ×2 (09:45→10:00)
[2023-12-29] MEDS ORDERED: Cholecalciferol 2,000 UNIT TABLET (50 MCG) PO SCH (10:00)
[2023-12-29] MEDS ORDERED: DOCUSATE SODIUM 100 MG CAP PO SCH (10:00)
[2023-12-29] MEDS ORDERED: Lactated Ringer's Solution 1,000 ML IV SCH (10:05)
[2023-12-29] MEDS ORDERED: BUPIVACAINE 0.25% 10 ML VIAL ONE (12:02)
[2023-12-29] MEDS ORDERED: MAGNESIUM SULFATE 1 GM/2 ML VIAL IV ONE (14:13)
[2023-12-29] MEDS ORDERED: Midazolam Hydrochloride 2 MG/2 ML VIAL IV ONE (14:13)
[2023-12-29] MEDS ORDERED: PROPOFOL 200 MG/20 ML VIAL IV ONE (14:13)
[2023-12-29] MEDS ORDERED: ceFAZolin sodium 1 GM in SYRINGE INFUSION 10 ML IV SCH (16:00)
[2023-12-29] MEDS ORDERED: METOPROLOL SUCCINATE XR 25 MG TAB PO SCH (22:00)
[2023-12-29] MEDS ORDERED: SACUBITRIL/VALSARTAN 24 MG-26 MG TABLET PO SCH (22:00)
[2023-12-29] MEDS ORDERED: ALLOPURINOL 300 MG TAB PO SCH (22:00)
[2023-12-30] VITALS: BP 145/66
[2023-12-30 06:35] LABS: BASO # 0.1 10*3/uL (0.0-0.1); EOS # 0.1 10*3/uL (0.0-0.4); EOS % 0.5 % (1.0-4.0); HEMATOCRIT 26.7 % (42.0-52.0); MEAN CELL VOLUME 60.5 fl (80.0-94.0); MEAN CORPUSCULAR HGB 19.3 pg (27.0-31.0); MEAN CORPUSCULAR HGB CONC 31.8 g/dl (33.0-37.0); MEAN PLATELET VOLUME 9.7 fl (9.6-12.3); MONO # 1.2 10*3/uL (0.1-1.0); MONO % 12.6 % (3.0-9.0); NEUT # 5.6 10*3/uL (2.3-7.9); NEUT % 60.1 % (47.0-73.0); PLATELET COUNT AUTOMATED 386 10*3/uL (130-400); RED BLOOD COUNT 4.41 10*6/uL (4.50-5.90); RED CELL DISTRI WIDTH 15.5 % (0-14.5); WHITE BLOOD COUNT 9.4 10*3/uL (4.8-10.8)
[2023-12-30 06:52] LABS: BUN 8 mg/dl (9-23); CHLORIDE 100 mmol/L (98-107)
[2023-12-30] MEDS ORDERED: Polyethylene Glycol 3350 17 GM PACKET PO SCH (10:00)
[2023-12-30] MEDS ORDERED: Cholecalciferol 2,000 UNIT TABLET (50 MCG) PO SCH (10:00)
[2023-12-30] MEDS ORDERED: Tamsulosin Hydrochloride 0.4 MG CAP PO SCH (10:00)
[2023-12-30] MEDS ORDERED: Levothyroxine Sodium 75 MCG TAB PO SCH (10:00)
[2023-12-30] MEDS ORDERED: ATORVASTATIN CALCIUM 10 MG TAB PO SCH (10:00)
[2023-12-30] MEDS ORDERED: FERROUS SULFATE 325 MG TAB PO SCH (10:00)
[2023-12-30] MEDS ORDERED: MAGNESIUM OXIDE 400 MG TAB PO SCH (10:00)
[2023-12-30] MEDS ORDERED: RIVAROXABAN 20 MG TAB PO SCH (10:00)
[2023-12-30] MEDS ORDERED: FOLIC ACID 1 MG TAB PO SCH (10:00)
[2023-12-30 10:37] VITALS: BP 115/62
[2023-12-30 12:00] VITALS: BP 120/56
[2023-12-30 16:00] VITALS: BP 131/50
[2023-12-30 20:00] VITALS: BP 133/67
[2023-12-31] VITALS: BP 153/76
[2023-12-31 06:31] LABS: HEMATOCRIT 26.3 % (42.0-52.0); MEAN CELL VOLUME 59.6 fl (80.0-94.0); MEAN CORPUSCULAR HGB CONC 31.9 g/dl (33.0-37.0); MEAN PLATELET VOLUME 9.9 fl (9.6-12.3); PLATELET COUNT AUTOMATED 385 10*3/uL (130-400); RED BLOOD COUNT 4.41 10*6/uL (4.50-5.90); RED CELL DISTRI WIDTH 15.4 % (0-14.5)
[2023-12-31 06:33] LABS: MANUAL DIFF REFLEX YES
[2023-12-31 06:51] LABS: BUN 11 mg/dl (9-23); CHLORIDE 98 mmol/L (98-107); POTASSIUM 4.1 mmol/L (3.4-5.1)
[2023-12-31 07:06] LABS: ACANTHOCYTES FEW; BURR CELLS FEW; MICROCYTOSIS MODERATE; OVALOCYTES FEW; PLATELET SUFFICIENCY NORMAL (NORMAL); POLYCHROMASIA SLIGHT; SCHISTOCYTES FEW; TARGET CELLS MODERATE; TOTAL CELLS COUNTED 100 #CELLS
[2023-12-31 08:00] VITALS: BP 94/45
[2023-12-31 12:00] VITALS: BP 127/61
[2023-12-31 16:00] VITALS: BP 130/67
[2024-01-01] VITALS: BP 110/71
[2024-01-01 06:51] LABS: BUN 16 mg/dl (9-23); CHLORIDE 98 mmol/L (98-107); POTASSIUM 4.1 mmol/L (3.4-5.1)
[2024-01-01 07:00] LABS: BASO % 0.3 % (0.0-1.0); EOS # 0.1 10*3/uL (0.0-0.4); EOS % 0.7 % (1.0-4.0); HEMATOCRIT 24.1 % (42.0-52.0); MEAN CORPUSCULAR HGB 18.9 pg (27.0-31.0); MEAN CORPUSCULAR HGB CONC 31.5 g/dl (33.0-37.0); MEAN PLATELET VOLUME 9.8 fl (9.6-12.3); MONO # 1.3 10*3/uL (0.1-1.0); NEUT # 9.9 10*3/uL (2.3-7.9); PLATELET COUNT AUTOMATED 380 10*3/uL (130-400); RED BLOOD COUNT 4.02 10*6/uL (4.50-5.90); RED CELL DISTRI WIDTH 15.3 % (0-14.5); WHITE BLOOD COUNT 13.8 10*3/uL (4.8-10.8)
[2024-01-01 08:00] VITALS: BP 114/57
[2024-01-01 12:00] VITALS: BP 84/34
[2024-01-01] MEDS ORDERED: FEOSOL45 M1 PO (12:25)
[2024-01-01] MEDS ORDERED: SODIUM CHLORIDE 0.9% 500 ML IV ONE ×2 (13:10→20:30)
[2024-01-01 16:00] VITALS: BP 98/48
[2024-01-01 20:00] VITALS: BP 84/60
[2024-01-01] MEDS ORDERED: SODIUM CHLORIDE 0.9% 1,000 ML IV SCH (20:30)
[2024-01-02] VITALS (11 sets, daily range): BP systolic 96–120; BP diastolic 48–66
[2024-01-02 07:12] LABS: MEAN CORPUSCULAR HGB 18.9 pg (27.0-31.0); MEAN CORPUSCULAR HGB CONC 32.1 g/dl (33.0-37.0); MEAN PLATELET VOLUME 10.2 fl (9.6-12.3); PLATELET COUNT AUTOMATED 386 10*3/uL (130-400); RED BLOOD COUNT 3.54 10*6/uL (4.50-5.90); RED CELL DISTRI WIDTH 15.1 % (0-14.5); WHITE BLOOD COUNT 10.3 10*3/uL (4.8-10.8)
[2024-01-02 07:40] LABS: HEMATOCRIT 20.9 % (42.0-52.0); MANUAL DIFF REFLEX YES
[2024-01-02 07:41] LABS: ALKALINE PHOSPHATASE 97 U/L (46-116); BUN 22 mg/dl (9-23); CHLORIDE 100 mmol/L (98-107); POTASSIUM 3.7 mmol/L (3.4-5.1); SGPT/ALT 13 U/L (5-49); TOTAL PROTEIN 5.6 gm/dL (6.0-8.0)
[2024-01-02 08:41] LABS: MICROCYTOSIS MODERATE; PLATELET SUFFICIENCY NORMAL (NORMAL); POLYCHROMASIA SLIGHT; TOTAL CELLS COUNTED 100 #CELLS
[2024-01-02 08:42] LABS: ACANTHOCYTES FEW; OVALOCYTES FEW; SCHISTOCYTES FEW; TARGET CELLS FEW
[2024-01-03] VITALS: BP 113/76
[2024-01-03 06:26] LABS: BASO # 0.1 10*3/uL (0.0-0.1); BASO % 0.8 % (0.0-1.0); EOS # 0.3 10*3/uL (0.0-0.4); EOS % 2.5 % (1.0-4.0); HEMATOCRIT 21.6 % (42.0-52.0); MEAN CORPUSCULAR HGB 19.8 pg (27.0-31.0); MEAN CORPUSCULAR HGB CONC 32.4 g/dl (33.0-37.0); MEAN PLATELET VOLUME 9.6 fl (9.6-12.3); NEUT # 5.9 10*3/uL (2.3-7.9); NEUT % 58.2 % (47.0-73.0); PLATELET COUNT AUTOMATED 386 10*3/uL (130-400); RED BLOOD COUNT 3.54 10*6/uL (4.50-5.90); RED CELL DISTRI WIDTH 17.6 % (0-14.5); WHITE BLOOD COUNT 10.2 10*3/uL (4.8-10.8)
[2024-01-03 08:00] VITALS: BP 148/66
[2024-01-03 12:00] VITALS: BP 113/59
[2024-01-03 16:00] VITALS: BP 135/64
[2024-01-03 20:00] VITALS: BP 142/66
[2024-01-04] VITALS: BP 135/65
[2024-01-04 06:29] LABS: BASO # 0.1 10*3/uL (0.0-0.1); BASO % 0.6 % (0.0-1.0); EOS # 0.2 10*3/uL (0.0-0.4); EOS % 2.3 % (1.0-4.0); HEMATOCRIT 23.9 % (42.0-52.0); MEAN CELL VOLUME 62.2 fl (80.0-94.0); MEAN CORPUSCULAR HGB 19.5 pg (27.0-31.0); MEAN CORPUSCULAR HGB CONC 31.4 g/dl (33.0-37.0); MEAN PLATELET VOLUME 9.3 fl (9.6-12.3); MONO # 1.2 10*3/uL (0.1-1.0); MONO % 12.2 % (3.0-9.0); NEUT # 5.2 10*3/uL (2.3-7.9); NEUT % 55.1 % (47.0-73.0); PLATELET COUNT AUTOMATED 438 10*3/uL (130-400); RED BLOOD COUNT 3.84 10*6/uL (4.50-5.90); WHITE BLOOD COUNT 9.5 10*3/uL (4.8-10.8)
[2024-01-04 06:43] LABS: ALKALINE PHOSPHATASE 240 U/L (46-116); BUN 14 mg/dl (9-23); CHLORIDE 99 mmol/L (98-107); POTASSIUM 3.7 mmol/L (3.4-5.1); SGPT/ALT 241 U/L (5-49); TOTAL PROTEIN 5.8 gm/dL (6.0-8.0)
[2024-01-04 08:00] VITALS: BP 114/64
[2024-01-04] MEDS ORDERED: RIVAROXABAN 10 MG TAB PO SCH (10:00)
[2024-01-04 12:00] VITALS: BP 135/70
[2024-01-04 16:00] VITALS: BP 91/63
[2024-01-04 16:39] VITALS: BP 128/60
[2024-01-04 20:00] VITALS: BP 128/73
[2024-01-05] VITALS: BP 109/52
[2024-01-05 05:04] LABS: HBSAG Negative (Negative); HEP B CORE AB, IGM Negative (Negative); HEPATITIS C ANTIBODY Non Reactive (Non Reactive)
[2024-01-05 06:41] LABS: BASO # 0.1 10*3/uL (0.0-0.1); BASO % 0.8 % (0.0-1.0); EOS # 0.3 10*3/uL (0.0-0.4); EOS % 2.3 % (1.0-4.0); MEAN CELL VOLUME 61.4 fl (80.0-94.0); MEAN CORPUSCULAR HGB 19.7 pg (27.0-31.0); MEAN CORPUSCULAR HGB CONC 32.1 g/dl (33.0-37.0); MEAN PLATELET VOLUME 9.3 fl (9.6-12.3); MONO # 1.2 10*3/uL (0.1-1.0); MONO % 10.7 % (3.0-9.0); NEUT # 6.6 10*3/uL (2.3-7.9); PLATELET COUNT AUTOMATED 484 10*3/uL (130-400); RED BLOOD COUNT 3.91 10*6/uL (4.50-5.90); RED CELL DISTRI WIDTH 18.6 % (0-14.5); WHITE BLOOD COUNT 10.7 10*3/uL (4.8-10.8)
[2024-01-05 06:48] LABS: ALKALINE PHOSPHATASE 284 U/L (46-116); BUN 13 mg/dl (9-23); CHLORIDE 99 mmol/L (98-107); POTASSIUM 4.1 mmol/L (3.4-5.1); SGPT/ALT 234 U/L (5-49)
[2024-01-05 08:00] VITALS: BP 125/66
[2024-01-05] MEDS ORDERED: Acetaminophen/Oxycodone 5 MG/325 MG TABLET PO PRN (09:55)
[2024-01-05 12:00] VITALS: BP 98/54
[2024-01-05 14:30] VITALS: BP 108/50
== END 2024-01-05 16:05 | DRG 469 ==
LOC: SDC 00:41 → 4E 08:55 → SDC 10:15 → 4E 01-05 16:05
PROVIDERS: Orthopaedic Surgery; ADMIT Internal Medicine; ATTEND Internal Medicine
PROC: 0SRD0J9 Replacement of Left Knee Joint with Synthetic Substitute, Cemented, Open Approach (ICD-10-PCS; principal; 2023-12-29)
PROC: 3E0T3BZ Introduction of Anesthetic Agent into Peripheral Nerves and Plexi, Percutaneous Approach (ICD-10-PCS; 2023-12-29)
PROC: 30233N1 Transfusion of Nonautologous Red Blood Cells into Peripheral Vein, Percutaneous Approach (ICD-10-PCS; 2024-01-02)
DX: M17.12 Unilateral primary osteoarthritis, left knee (principal); E43 Unspecified severe protein-calorie malnutrition; K72.00 Acute and subacute hepatic failure without coma; E87.1 Hypo-osmolality and hyponatremia; I43 Cardiomyopathy in diseases classified elsewhere; I95.9 Hypotension, unspecified; E53.8 Deficiency of other specified B group vitamins; Z96.641 Presence of right artificial hip joint; G89.18 Other acute postprocedural pain; M21.062 Valgus deformity, not elsewhere classified, left knee; M10.9 Gout, unspecified; I10 Essential (primary) hypertension; E11.9 Type 2 diabetes mellitus without complications; E55.9 Vitamin D deficiency, unspecified; E03.9 Hypothyroidism, unspecified; D50.9 Iron deficiency anemia, unspecified; N40.0 Benign prostatic hyperplasia without lower urinary tract symptoms; I48.0 Paroxysmal atrial fibrillation; I35.0 Nonrheumatic aortic (valve) stenosis; E78.5 Hyperlipidemia, unspecified; M21.262 Flexion deformity, left knee; Z96.651 Presence of right artificial knee joint; Z82.0 Family history of epilepsy and other diseases of the nervous system; Z88.8 Allergy status to other drugs, medicaments and biological substances; Z86.73 Personal history of transient ischemic attack (TIA), and cerebral infarction without residual deficits; Z68.26 Body mass index [BMI] 26.0-26.9, adult; Z79.899 Other long term (current) drug therapy; Z79.84 Long term (current) use of oral hypoglycemic drugs; I95.81 Postprocedural hypotension

== ENCOUNTER → 2024-02-03 | Outpatient (CLI) | payer MEDICARE ==
[~2024-02-03] MED LIST changes: +FEOSOL45 M1 PO
== END | disposition home or self-care (01) ==
LOC: ORTHO 02:24
PROVIDERS: ATTEND Orthopaedic Surgery
DX: Z47.1 Aftercare following joint replacement surgery (principal)

== ENCOUNTER → 2024-03-30 | Outpatient (CLI) | payer MEDICARE | END | disposition home or self-care (01) | LOC: ORTHO 03:28 | PROVIDERS: ATTEND Orthopaedic Surgery | DX: Z47.1 Aftercare following joint replacement surgery (principal); Z96.652 Presence of left artificial knee joint ==

== ENCOUNTER → 2024-06-29 | Outpatient (CLI) | payer MEDICARE | END | disposition home or self-care (01) | LOC: ORTHO 01:12 | PROVIDERS: ATTEND Orthopaedic Surgery | DX: M25.462 Effusion, left knee (principal); Z96.652 Presence of left artificial knee joint ==

== ENCOUNTER → 2024-07-15 | Outpatient (CLI) | payer MEDICARE ==
[2024-07-15 09:52] LABS: BASO # 0.1 10*3/uL (0.0-0.1); BASO % 0.8 % (0.0-1.0); EOS # 0.2 10*3/uL (0.0-0.4); EOS % 2.3 % (1.0-4.0); MEAN CELL VOLUME 59.8 fl (80.0-94.0); MEAN CORPUSCULAR HGB 17.7 pg (27.0-31.0); MEAN CORPUSCULAR HGB CONC 29.6 g/dl (33.0-37.0); MONO # 0.6 10*3/uL (0.1-1.0); MONO % 7.9 % (3.0-9.0); NEUT # 4.2 10*3/uL (2.3-7.9); NEUT % 52.5 % (47.0-73.0); PLATELET COUNT AUTOMATED 451 10*3/uL (130-400); RED BLOOD COUNT 4.18 10*6/uL (4.50-5.90); RED CELL DISTRI WIDTH 17.2 % (0-14.5)
[2024-07-15 10:22] LABS: ALKALINE PHOSPHATASE 117 U/L (46-116); BUN 15 mg/dl (9-23); CHLORIDE 101 mmol/L (98-107); POTASSIUM 3.8 mmol/L (3.4-5.1); SGPT/ALT 8 U/L (5-49); TOTAL PROTEIN 6.5 gm/dL (6.0-8.0)
== END | disposition home or self-care (01) ==
LOC: LAB 09:38
DX: E87.8 Other disorders of electrolyte and fluid balance, not elsewhere classified (principal)